=== PATIENT | male | born 1970 | race Caucasian/White ===

== ENCOUNTER 2018-12-25 19:33 | Emergency (ER) | payer BC ==
[2018-12-25] MEDS ORDERED: NA CHLORIDE 0.9% 1,000 ML ONE (20:15)
[2018-12-25] MEDS ORDERED: FENTANYL CITR 100 MCG/2 ML ONE (20:15)
[2018-12-25 20:27] LABS: Absolute Lymphocytes (CBC) 0.9 K/uL (0.7-4.9); Absolute Monocytes 0.6 K/uL (0.1-1.3); Absolute Neutrophil 7.9 K/uL (1.8-8.0); Basophils % 0.2 % (0-1.3); Eosinophils % 0.4 % (0-4.4); Hematocrit 44.5 % (39.6-49.0); Lymphocytes % 9.6 % (15.3-44.8); Monocytes % 6.6 % (3.3-12.3); RBC Red Blood Cell Count 4.69 M/uL (4.33-5.43)
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
[2018-12-25 20:36] LABS: Potassium 3.9 mmol/L (3.5-5.1)
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
--- NOTE | 2018-12-25 20:38 | RAD REPORT ---
EXAM DESCRIPTION: RAD - Chest Single View - 12/25/2018 8:22 pm CLINICAL HISTORY: right side chest pain Chest pain. COMPARISON: No comparisons FINDINGS: Portable technique limits examination quality. The lungs are grossly clear. The heart is normal in size. Mildly overriding right clavicle fracture.
[2018-12-25 20:46] LABS: Protime INR 1.04
[2018-12-25] MEDS ORDERED: TETANUS & DIPHTHERIA TOX,ADULT 0.5 ML VIAL ONE (21:46)
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
[2018-12-25] MEDS ORDERED: HYDROCODONE/APAP 10/325 TAB ONE (23:04)
[2018-12-26 01:13] VITALS: TEMP 97.4; O2SAT 97
[2018-12-26 01:14] VITALS: BP 150/80
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
== END 2018-12-25 23:09 | disposition home or self-care (01) ==
LOC: ER 19:33
DX: S42.021A Displaced fracture of shaft of right clavicle, initial encounter for closed fracture (principal); S22.31XA Fracture of one rib, right side, initial encounter for closed fracture; S00.01XA Abrasion of scalp, initial encounter; S40.211A Abrasion of right shoulder, initial encounter; S40.811A Abrasion of right upper arm, initial encounter; V29.9XXA Motorcycle rider (driver) (passenger) injured in unspecified traffic accident, initial encounter
CPT/HCPCS: 36415; 70450; 71045; 71260; 72125; 72170; 74177; 80048; 85025; 85610; 86850; 86900; 86901; 90471; 90714; 96361; 96374; 99285; J3010; J7030; Q9967